=== PATIENT | male | born 1960 | race Caucasian/White ===

== ENCOUNTER 2019-09-03 21:49 | Emergency (ER) | payer SELFPAY ==
[~2019-09-03] VITALS: Ht 165.1 cm; Wt 81.6 kg
[2019-09-03 21:54] VITALS: BP 179/90
--- NOTE | 2019-09-03 21:54 | NUR ---
BIB EMS. PT ON BED DELAY.
--- NOTE | 2019-09-03 22:30 | NUR ---
BIBA TO ER BED 2
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
--- NOTE | 2019-09-03 23:15 | NUR ---
PATIENT TAKEN TO CT VIA WHEELCHAIR
[2019-09-03 23:17] LABS: BASOPHILS % (AUTO) 0.4 % (0.0-2.0); EOSINOPHILS # (AUTO) 0.1 K/uL (0-0.4); EOSINOPHILS % (AUTO) 1.3 % (0.0-4.0); HEMATOCRIT 46.3 % (36-52); HEMOGLOBIN 15.7 g/dL (12.0-18.0); LYMPHOCYTES # (AUTO) 1.4 K/uL (2.0-11.5); LYMPHOCYTES % (AUTO) 17.5 % (20.5-51.1); MEAN CORPUSCULAR HEMOGLOBIN 34 pg (27-31); MEAN CORPUSCULAR HGB CONC 34 g/dL (33-37); MEAN CORPUSCULAR VOLUME 99.3 fL (80-94); MONOCYTES # (AUTO) 0.5 K/uL (0.8-1.0); MONOCYTES % (AUTO) 6.5 % (1.7-9.3); NEUTROPHILS # (AUTO) 5.9 K/uL (1.8-7.7); NEUTROPHILS % (AUTO) 74.3 % (42.2-75.2); PLATELET COUNT (AUTO) 203 K/uL (140-450); RED BLOOD CELL COUNT(AUTO) 4.66 MIL/uL (4.20-6.10); RED CELL DISTRIBUTION WIDTH 13.4 % (11.6-13.7)
[2019-09-03 23:37] LABS: ALBUMIN 4.1 g/dL (3.4-5.0); CARBON DIOXIDE 20.9 mmol/L (21-32); CREATININE 0.8 mg/dL (0.6-1.3); POTASSIUM 3.9 mmol/L (3.5-5.1); TOTAL BILIRUBIN 0.5 mg/dL (0.0-1.0)
--- NOTE | 2019-09-04 | NUR ---
CLEANED PATIENTS HEAD WITH NS AND PAT DRIED. SMALL LACERATION NOTED ON POSTERIOR HEAD-RIGHT SIDE, SMALL AMOUNT OF BLOOD. APPLIED BANDAGE. PT TOLERATED WELL.
[2019-09-04 01:00] VITALS: BP 179/115
--- NOTE | 2019-09-04 01:00 | NUR ---
PATIENT CONNECTED TO [employer]. HR-120 BPM, BP-170/85, RR-21, SATURATIONS 96% ON RA.
== END 2019-09-04 01:25 | disposition home or self-care (01) ==
LOC: MED 21:49
DX: S00.01XA Abrasion of scalp, initial encounter (principal); F10.120 Alcohol abuse with intoxication, uncomplicated; Z86.73 Personal history of transient ischemic attack (TIA), and cerebral infarction without residual deficits; Y04.8XXA Assault by other bodily force, initial encounter; Y93.89 Activity, other specified; Y92.89 Other specified places as the place of occurrence of the external cause; Y99.8 Other external cause status; Y90.9 Presence of alcohol in blood, level not specified
CPT/HCPCS: 36415; 70450; 72072; 72100; 80053; 85025; 99285; G0482